=== PATIENT | male | born 1965 | race Caucasian/White ===

== ENCOUNTER 2018-12-27 12:59 | Observation (INO) ==
--- NOTE | 2018-12-27 13:18 | Emergency Department Note ---
Disposition Clinical Impression: Weakness, LESA (acute kidney injury) Altered mental status Qualifiers: Altered mental status type: unspecified Qualified Code(s): R41.82 - Altered mental status, unspecified Disposition: Admitted As Inpatient Condition: Fair Referrals: Erick Crawford, MILA [Primary Care Provider] - Forms: ED Satisfaction Letter Time of Disposition: 17:26 General Adult HPI - General Chief complaint: ED Fall Stated complaint: weakness Time Seen by Provider: 12/27/18 13:04 Source: patient, family, EMS Mode of arrival: EMS Limitations: other (R sided deficits from previous CVA) Nursing Notes Reviewed: Yes Vital Signs Reviewed: Yes - History of Present Illness HPI Narrative: 3-year-old male with a past medical history of previous CVA with residual right- sided deficits that fell yesterday after he tripped on some places he fell onto his right side and onto his right foot he is now complaining of right ankle pain that hurts when he puts weight on it and some swelling, as well as a mild headache. Patient denies any pain with deep breath, pain in his right flank. Patient is alert and oriented 2 he does know where he is and who he is, however he does not know what day it is. Patient does know who the president is. Patient does have a home health aide to help him with activities of daily living since his stroke. He is complaining of some increased weakness, gait instability since before the fall yesterday. He was seated at outside facility yesterday where they did a ankle x-ray which did not show any acute fracture, but did show some osteophytes in the area of the navicular which they encouraged correlation with old trauma by radiology read. - Related Data Home Medications Medication Instructions Recorded Confirmed Acetaminophen [Tylenol] 500 mg PO Q6HR PRN 12/27/18 12/27/18 Alogliptin Benzoate [Alogliptin] 25 mg PO DAILY 12/27/18 12/27/18 Aspirin [Lo-Dose Aspirin EC] 81 mg PO DAILY 12/27/18 12/27/18 Atorvastatin [Lipitor] 40 mg PO HS 12/27/18 12/27/18 Calcitriol [Rocaltrol] 0.25 mcg PO DAILY 12/27/18 12/27/18 Cholecalciferol (Vitamin D3) 1,000 unit PO QAM 12/27/18 12/27/18 [Vitamin D] Labetalol HCl 400 mg PO BID 12/27/18 12/27/18 NIFEdipine XL (24 HR) [Procardia 30 mg PO DAILY 12/27/18 12/27/18 XL] Omeprazole [PriLOSEC] 20 mg PO DAILY 12/27/18 12/27/18 Tamsulosin [Flomax] 0.4 mg PO DAILY 12/27/18 12/27/18 glipiZIDE [Glipizide] 10 mg PO DAILY 12/27/18 12/27/18 Previous Rx's Medication Instructions Recorded Ketorolac [Toradol] 10 mg PO Q6HR #20 tablet 12/27/18 PredniSONE [Deltasone] 40 mg PO DAILY #10 tablet 12/27/18 Allergies Allergy/AdvReac Type Severity Reaction Status Date / Time No Known Allergies Allergy Verified 12/27/18 07:21 Review of Systems: In addition to that documented in the HPI above, the additional ROS was obtain ed: Constitutional: Denies fevers or chills Eyes: Denies vision changes ENMT: Denies sore throat CV: Denies chest pain Resp: Denies SOB GI: Denies vomiting or diarrhea : Denies painful urination MSK: Reports recent trauma - fall yesterday onto right side and right foot Skin: Denies new rashes Neuro: Denies new numbness or tingling or weakness Past Medical History - Past Medical History Attestation: Yes The following information was validated with the patient. Medical history: Reports: renal disease, other Psychiatric history: Reports: no psych history - Social History Smoking Status: Never smoker Smokeless Tobacco Status: No Alcohol use: Reports: none Drug use: Reports: none Physical Exam GENERAL: Alert and oriented to person and place, but not time. Thin. Appears older than stated age. SKIN: Warm and well perfused. HEAD: Atraumatic, normocephalic without edema, discoloration or evidence of trauma. Facial bones without deformities or tenderness. EYES: Pupils miotic. No scleral icterus or conjunctival injection. Extraocular muscles intact without nystagmus or diplopia. No proptosis or enophthalmos. EARS: Normal appearing pinnae. No hemotympanum. NOSE: No discharge, tenderness, laxity. No nasal septal hematoma. MOUTH: No malocclusion or trismus. Tacky mucus membranes without blood. Posterior pharynx without erythema or exudate. NECK: Trachea midline. No discolorations or edema. CV: Regular rate and rhythm, Normal s1 and s2. No murmurs, rubs, or gallops. PV: Radial pulses 2+ bilaterally and symmetric. Dorsalis pedis pulses 2+ bilaterally and symmetric. 2+ capillary refill. No extremity edema in LLE, RUE, LUE. RLE has some mild, non-pitting, edema to level of ankle. CHEST: No abrasions or ecchymosis. Chest symmetric with respirations. No chest wall tenderness. No crepitus. No step offs. Lungs are clear to auscultation bilaterally. No rales, rhonchi, wheezing or stridor. ABDOMEN: No ecchymosis or abrasions. Soft, nondistended, nontender. Bowel tones normoactive. No masses or organomegaly. Voluntary guarding present in all quadrants, but pt denies pain with palpation. BACK: No skin openings, or ecchymosis. Cervical and thoracic spine without bony tenderness, no step offs. Midline lumbar tenderness in area of L3-4, pt states is since fall yesterday. Right-sided red punctate ecchymosis present on back, in area of T8-T12, without overlying abrasion. PELVIC: Pelvis stable, nontender to lateral compression and palpation of symphysis pubis. MSK: No gross deformities or discolorations or lesions. Tolerates full range of motion of extremities without tenderness. NEURO: GCS 15. Sensation grossly intact. Strength 5/5 in bilateral UE, Str 4/5 in RLE, 5/5 in LLE. CN II-XI intact, CN XII unable to deviate tongue to right. Cerebellar testing with finger to nose intact bilaterally. Course Vital Signs Temperature 98.6 F 12/27/18 13:02 Pulse Rate 92 12/27/18 13:02 Respiratory Rate 18 12/27/18 13:02 Blood Pressure 179/100 12/27/18 13:02 O2 Sat by Pulse Oximetry 97 12/27/18 13:02 Temperature 98.6 F 12/27/18 13:02 Pulse Rate 96 12/27/18 16:53 Respiratory Rate 18 12/27/18 16:53 Blood Pressure 173/102 12/27/18 16:53 O2 Sat by Pulse Oximetry 98 12/27/18 16:53 Oxygen Delivery Oxygen Delivery Room Air Medical Decision Making - MDM Narrative Medical decision making narrative: Patient's lab work showed an acute kidney injury with elevated creatinine at 1.92. 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 Additionally patient remained only alert and oriented to self and place but not to time. Patient was deemed unable to make medical decisions regarding his care. Patient stated that he did not want to be admitted to the hospital however attending physician Dr. Davidson Greco spoke with both ethics and legal and it was determined that patient would not be considered competent to make medical decisions for himself. Patient was admitted to the hospitalist, Dr. Mendoza, who agreed to accept the patient to their service. Patient remained stable while in the department. - Medical Records Medical records reviewed: Yes I reviewed the patient's medical records. - Lab Data Lab results reviewed: Yes I reviewed the patient's lab results. Result diagrams: 12/27/18 13:22 12/27/18 13:22 Lab Results 12/27/18 12/27/18 12/27/18 Range/Units 13:22 13:22 13:22 WBC 8.7 (4.3-11.1) K/mcL RBC 4.22 (4.19-5.50) M/mcL Hgb 12.8 L (12.9-16.9) g/dL Hct 38.5 (37.5-50.1) % MCV 91.2 (83.0-100.0) fL MCH 30.3 (28.0-33.3) pg MCHC 33.2 (31.6-35.5) g/dL RDW 12.8 (11.5-14.5) % Plt Count 154 (140-400) K/mcL MPV 10.7 (9.4-12.4) fL Immature Gran % 0.3 (0-4) % Seg Neutrophils % 89.5 % Lymphocytes % 7.8 % Monocytes % 2.0 % Eosinophils % 0.2 % Basophils % 0.2 % Neutrophils # 7.8 (1.6-8.9) K/mcL Lymphocytes # 0.7 (0.6-4.6) K/mcL Monocytes # 0.2 (0.0-1.3) K/mcL Eosinophils # 0.0 (0.0-0.6) K/mcL Basophils # 0.0 (0.0-0.2) K/mcL PT 10.9 (9.4-12.1) Seconds INR 1.0 APTT 30.3 (26.0-36.0) Seconds Sodium 138 (136-145) mEq/L Potassium 4.4 (3.5-5.1) mEq/L Chloride 104 (98-107) mEq/L Carbon Dioxide 26 (23-29) mEq/L BUN 34 H (6-20) mg/dL Creatinine 1.92 H (0.70-1.30) mg/dL Est GFR ( Amer) 44 L (> 60) Est GFR (Non-Af Amer) 37 L (> 60) BUN/Creatinine Ratio 18 (6-26) Glucose 379 H (70-105) mg/dL Calculated Osmolality 309 H (280-300) Lactic Acid (0.5-2.2) mmol/L Uric Acid 6.7 (2.3-7.6) mg/dL Calcium 10.0 (8.6-10.3) mg/dL Phosphorus 2.0 L (2.7-4.5) mg/dL Magnesium 1.9 (1.6-2.6) mg/dL Total Bilirubin 1.8 H (0.3-1.0) mg/dL Direct Bilirubin 0.3 H (0.0-0.2) mg/dL Indirect Bilirubin 1.5 H (0.0-1.2) mg/dL AST 22 (13-39) Units/L ALT 18 (7-52) Units/L Alkaline Phosphatase 113 H (34-104) Units/L Troponin I < 0.03 (< 0.04) ng/mL B-Natriuretic Peptide (Less than 100) pg/mL Serum Total Protein 7.3 (6.4-8.9) g/dL Albumin 4.7 (3.5-5.7) g/dL Globulin 2.6 (2.4-3.5) g/dL Albumin/Globulin Ratio 1.8 (1.1-2.2) Lipase 24 (11-82) Units/L Urine Color (Yellow) Urine Clarity (Clear) Urine pH (5.0-8.0) pH Units Ur Specific Terral (1.010-1.025) Urine Protein (Neg-Trace) mg/dL Urine Glucose (UA) (Normal) mg/dL Urine Ketones (Negative) mg/dL Urine Blood (Negative) Urine Nitrite (Negative) Urine Bilirubin (Negative) Urine Urobilinogen (Normal) mg/dL Ur Leukocyte Esterase (Negative) Ur Culture Indicated? (NO) 12/27/18 12/27/18 12/27/18 Range/Units 13:22 13:22 14:28 WBC (4.3-11.1) K/mcL RBC (4.19-5.50) M/mcL Hgb (12.9-16.9) g/dL Hct (37.5-50.1) % MCV (83.0-100.0) fL MCH (28.0-33.3) pg MCHC (31.6-35.5) g/dL RDW (11.5-14.5) % Plt Count (140-400) K/mcL MPV (9.4-12.4) fL Immature Gran % (0-4) % Seg Neutrophils % % Lymphocytes % % Monocytes % % Eosinophils % % Basophils % % Neutrophils # (1.6-8.9) K/mcL Lymphocytes # (0.6-4.6) K/mcL Monocytes # (0.0-1.3) K/mcL Eosinophils # (0.0-0.6) K/mcL Basophils # (0.0-0.2) K/mcL PT (9.4-12.1) Seconds INR APTT (26.0-36.0) Seconds Sodium (136-145) mEq/L Potassium (3.5-5.1) mEq/L Chloride (98-107) mEq/L Carbon Dioxide (23-29) mEq/L BUN (6-20) mg/dL Creatinine (0.70-1.30) mg/dL Est GFR ( Amer) (> 60) Est GFR (Non-Af Amer) (> 60) BUN/Creatinine Ratio (6-26) Glucose (70-105) mg/dL Calculated Osmolality (280-300) Lactic Acid 1.2 (0.5-2.2) mmol/L Uric Acid (2.3-7.6) mg/dL Calcium (8.6-10.3) mg/dL Phosphorus (2.7-4.5) mg/dL Magnesium (1.6-2.6) mg/dL Total Bilirubin (0.3-1.0) mg/dL Direct Bilirubin (0.0-0.2) mg/dL Indirect Bilirubin (0.0-1.2) mg/dL AST (13-39) Units/L ALT (7-52) Units/L Alkaline Phosphatase (34-104) Units/L Troponin I (< 0.04) ng/mL B-Natriuretic Peptide 16 (Less than 100) pg/mL Serum Total Protein (6.4-8.9) g/dL Albumin (3.5-5.7) g/dL Globulin (2.4-3.5) g/dL Albumin/Globulin Ratio (1.1-2.2) Lipase (11-82) Units/L Urine Color Yellow (Yellow) Urine Clarity Clear (Clear) Urine pH 6.0 (5.0-8.0) pH Units Ur Specific Terral 1.013 (1.010-1.025) Urine Protein Negative (Neg-Trace) mg/dL Urine Glucose (UA) 500 H (Normal) mg/dL Urine Ketones Negative (Negative) mg/dL Urine Blood Negative (Negative) Urine Nitrite Negative (Negative) Urine Bilirubin Negative (Negative) Urine Urobilinogen Normal (Normal) mg/dL Ur Leukocyte Esterase Negative (Negative) Ur Culture Indicated? NO (NO) 12/27/18 Range/Units 17:00 WBC (4.3-11.1) K/mcL RBC (4.19-5.50) M/mcL Hgb (12.9-16.9) g/dL Hct (37.5-50.1) % MCV (83.0-100.0) fL MCH (28.0-33.3) pg MCHC (31.6-35.5) g/dL RDW (11.5-14.5) % Plt Count (140-400) K/mcL MPV (9.4-12.4) fL Immature Gran % (0-4) % Seg Neutrophils % % Lymphocytes % % Monocytes % % Eosinophils % % Basophils % % Neutrophils # (1.6-8.9) K/mcL Lymphocytes # (0.6-4.6) K/mcL Monocytes # (0.0-1.3) K/mcL Eosinophils # (0.0-0.6) K/mcL Basophils # (0.0-0.2) K/mcL PT (9.4-12.1) Seconds INR APTT (26.0-36.0) Seconds Sodium (136-145) mEq/L Potassium (3.5-5.1) mEq/L Chloride (98-107) mEq/L Carbon Dioxide (23-29) mEq/L BUN (6-20) mg/dL Creatinine (0.70-1.30) mg/dL Est GFR ( Amer) (> 60) Est GFR (Non-Af Amer) (> 60) BUN/Creatinine Ratio (6-26) Glucose (70-105) mg/dL Calculated Osmolality (280-300) Lactic Acid 0.8 (0.5-2.2) mmol/L Uric Acid (2.3-7.6) mg/dL Calcium (8.6-10.3) mg/dL Phosphorus (2.7-4.5) mg/dL Magnesium (1.6-2.6) mg/dL Total Bilirubin (0.3-1.0) mg/dL Direct Bilirubin (0.0-0.2) mg/dL Indirect Bilirubin (0.0-1.2) mg/dL AST (13-39) Units/L ALT (7-52) Units/L Alkaline Phosphatase (34-104) Units/L Troponin I (< 0.04) ng/mL B-Natriuretic Peptide (Less than 100) pg/mL Serum Total Protein (6.4-8.9) g/dL Albumin (3.5-5.7) g/dL Globulin (2.4-3.5) g/dL Albumin/Globulin Ratio (1.1-2.2) Lipase (11-82) Units/L Urine Color (Yellow) Urine Clarity (Clear) Urine pH (5.0-8.0) pH Units Ur Specific Terral (1.010-1.025) Urine Protein (Neg-Trace) mg/dL Urine Glucose (UA) (Normal) mg/dL Urine Ketones (Negative) mg/dL Urine Blood (Negative) Urine Nitrite (Negative) Urine Bilirubin (Negative) Urine Urobilinogen (Normal) mg/dL Ur Leukocyte Esterase (Negative) Ur Culture Indicated? (NO) - Radiology Data Radiology results reviewed: Yes I reviewed the patient's radiology results. Chest X-Ray 12/27/18 13:05 IMPRESSION: 1. Stable chest x-ray with no active pulmonary disease. D/ / Emmanuel Cruz MD / Emmanuel Cruz MD Interpreting Provider: Emmanuel Cruz MD Cervical Spine CT 12/27/18 13:14 IMPRESSION: No acute abnormality of the cervical spine. D/ / Yared Donaldson MD / Yared Donaldson MD Interpreting Provider: Yared Donaldson MD Head CT 12/27/18 13:14 IMPRESSION: No acute findings in the head. D/ / Luis Aviles MD / Luis Aviles MD Interpreting Provider: Luis Aviles MD Lumbar Spine CT 12/27/18 13:28 IMPRESSION: 1. No acute abnormality involving the lumbar spine. D/ / Emmanuel Cruz MD / Emmanuel Cruz MD Interpreting Provider: Emmanuel Cruz MD Thoracic Spine CT 12/27/18 13:28 IMPRESSION: No acute abnormality of the thoracic spine, as discussed. No evidence of fracture. D/ / Luis Armando Daigle MD / Luis Armando Daigle MD Interpreting Provider: Luis Armando Daigle MD Abdomen/Pelvis CT 12/27/18 15:12 IMPRESSION: 1. Cholelithiasis with no findings of cholecystitis or biliary obstruction 2. Cluster of nodules in the medial right lower lobe have the appearance an atypical infectious process D/ / Yared Donaldson MD / Yared Donaldson MD Interpreting Provider: Yared Donaldson MD - EKG Data EKG #1 EKG attestation: Yes I reviewed and interpreted this EKG. EKG results narrative: Heart rate 89, rhythm sinus, axis normal. IL 169 and prolonged, QRS 93, QTc 446. ST elevation noted in V2 and V3 however this is also noted on the previous study dated 11/18/2013, no other ST elevation noted however there are d ownsloping ST segments in lead 3. There is evidence of left ventricular hypertrophy. There are flattened T waves in lead V6. Attestation Statement - Attestation Attestation: I, Davidson Greco DO, examined this patient [id number] and my medical decision-making was reviewed with Dr. Izzy Hernandez, Resident Physician. I agree with the documented findings, disposition and treatment plan as described except to the extent set forth below. I personally supervised and was present for the medina/critical portions of the procedures completed by the resident documented below. Please see my progress notes for details.
[2018-12-27 13:39] LABS: Basophils % 0.2 %; Eosinophils % 0.2 %; Hematocrit 38.5 % (37.5-50.1); Hemoglobin 12.8 g/dL (12.9-16.9); Immature Granulocytes % 0.3 % (0-4); Lymphocytes # 0.7 K/mcL (0.6-4.6); Lymphocytes % 7.8 %; Mean Corpuscular HGB Conc 33.2 g/dL (31.6-35.5); Mean Corpuscular Hemoglobin 30.3 pg (28.0-33.3); Mean Corpuscular Volume 91.2 fL (83.0-100.0); Mean Platelet Volume 10.7 fL (9.4-12.4); Monocytes # 0.2 K/mcL (0.0-1.3); Neutrophils # 7.8 K/mcL (1.6-8.9); Platelet Count 154 K/mcL (140-400); Red Blood Count 4.22 M/mcL (4.19-5.50); Red Cell Distribution Width 12.8 % (11.5-14.5); Segmented Neutrophils % 89.5 %
[2018-12-27 13:46] LABS: Prothrombin Time 10.9 Seconds (9.4-12.1)
[2018-12-27 13:48] LABS: Activated Partial Thrombo Time 30.3 Seconds (26.0-36.0)
[2018-12-27 14:05] LABS: Alanine Aminotransferase 18 Units/L (7-52); Albumin 4.7 g/dL (3.5-5.7); Albumin/Globulin Ratio 1.8 (1.1-2.2); Alkaline Phosphatase 113 Units/L (34-104); Aspartate Amino Transferase 22 Units/L (13-39); BUN/Creatinine Ratio 18 (6-26); Bilirubin,Direct 0.3 mg/dL (0.0-0.2); Bilirubin,Indirect 1.5 mg/dL (0.0-1.2); Bilirubin,Total 1.8 mg/dL (0.3-1.0); Blood Urea Nitrogen 34 mg/dL (6-20); Carbon Dioxide 26 mEq/L (23-29); Chloride 104 mEq/L (98-107); Globulin 2.6 g/dL (2.4-3.5); Glucose 379 mg/dL (70-105); Magnesium 1.9 mg/dL (1.6-2.6); Osmolality,Calculated 309 (280-300); Potassium 4.4 mEq/L (3.5-5.1); Sodium 138 mEq/L (136-145); Total Protein 7.3 g/dL (6.4-8.9); Troponin I < 0.03 ng/mL (< 0.04); Uric Acid 6.7 mg/dL (2.3-7.6); eGFR For Non-African Americans 37 (> 60)
--- NOTE | 2018-12-27 14:20 | Emergency Department Note ---
Disposition Clinical Impression: Weakness, LESA (acute kidney injury) Altered mental status Qualifiers: Altered mental status type: unspecified Qualified Code(s): R41.82 - Altered mental status, unspecified Disposition: Admitted As Inpatient Condition: Fair Time of Disposition: 22:57 General Adult HPI - General Chief complaint: ED General Medical Stated complaint: weakness Time Seen by Provider: 12/27/18 13:04 Source: patient, family, EMS Mode of arrival: EMS Limitations: other (R sided deficits from previous CVA) - History of Present Illness Pain Scale: 0 - Related Data Home Medications Medication Instructions Recorded Confirmed Acetaminophen [Tylenol] 500 mg PO Q6HR PRN 12/27/18 12/27/18 Alogliptin Benzoate [Alogliptin] 25 mg PO DAILY 12/27/18 12/27/18 Aspirin [Lo-Dose Aspirin EC] 81 mg PO DAILY 12/27/18 12/27/18 Atorvastatin [Lipitor] 40 mg PO HS 12/27/18 12/27/18 Calcitriol [Rocaltrol] 0.25 mcg PO DAILY 12/27/18 12/27/18 Cholecalciferol (Vitamin D3) 1,000 unit PO QAM 12/27/18 12/27/18 [Vitamin D] Labetalol HCl 400 mg PO BID 12/27/18 12/27/18 NIFEdipine XL (24 HR) [Procardia 30 mg PO DAILY 12/27/18 12/27/18 XL] Omeprazole [PriLOSEC] 20 mg PO DAILY 12/27/18 12/27/18 Tamsulosin [Flomax] 0.4 mg PO DAILY 12/27/18 12/27/18 glipiZIDE [Glipizide] 10 mg PO DAILY 12/27/18 12/27/18 Previous Rx's Medication Instructions Recorded Ketorolac [Toradol] 10 mg PO Q6HR #20 tablet 12/27/18 PredniSONE [Deltasone] 40 mg PO DAILY #10 tablet 12/27/18 Allergies Allergy/AdvReac Type Severity Reaction Status Date / Time No Known Allergies Allergy Verified 12/27/18 07:21 Past Medical History - Past Medical History Medical history: Reports: renal disease, other Psychiatric history: Reports: no psych history - Social History Smoking Status: Never smoker Smokeless Tobacco Status: No Alcohol use: Reports: none Drug use: Reports: none Physical Exam - General Limitations: other (R sided deficits from previous CVA) General appearance: alert, in no apparent distress Course Vital Signs Temperature 98.6 F 12/27/18 13:02 Pulse Rate 92 12/27/18 13:02 Respiratory Rate 18 12/27/18 13:02 Blood Pressure 179/100 12/27/18 13:02 O2 Sat by Pulse Oximetry 97 12/27/18 13:02 Temperature 98.7 F 12/27/18 18:59 Pulse Rate 106 12/27/18 18:59 Respiratory Rate 16 12/27/18 18:59 Blood Pressure 194/113 12/27/18 18:59 O2 Sat by Pulse Oximetry 96 12/27/18 18:59 Oxygen Delivery Oxygen Delivery Room Air Medical Decision Making - Lab Data Result diagrams: 12/27/18 13:22 12/27/18 13:22 Lab Results 12/27/18 12/27/18 12/27/18 Range/Units 13:22 13:22 13:22 WBC 8.7 (4.3-11.1) K/mcL RBC 4.22 (4.19-5.50) M/mcL Hgb 12.8 L (12.9-16.9) g/dL Hct 38.5 (37.5-50.1) % MCV 91.2 (83.0-100.0) fL MCH 30.3 (28.0-33.3) pg MCHC 33.2 (31.6-35.5) g/dL RDW 12.8 (11.5-14.5) % Plt Count 154 (140-400) K/mcL MPV 10.7 (9.4-12.4) fL Immature Gran % 0.3 (0-4) % Seg Neutrophils % 89.5 % Lymphocytes % 7.8 % Monocytes % 2.0 % Eosinophils % 0.2 % Basophils % 0.2 % Neutrophils # 7.8 (1.6-8.9) K/mcL Lymphocytes # 0.7 (0.6-4.6) K/mcL Monocytes # 0.2 (0.0-1.3) K/mcL Eosinophils # 0.0 (0.0-0.6) K/mcL Basophils # 0.0 (0.0-0.2) K/mcL PT 10.9 (9.4-12.1) Seconds INR 1.0 APTT 30.3 (26.0-36.0) Seconds Sodium 138 (136-145) mEq/L Potassium 4.4 (3.5-5.1) mEq/L Chloride 104 (98-107) mEq/L Carbon Dioxide 26 (23-29) mEq/L BUN 34 H (6-20) mg/dL Creatinine 1.92 H (0.70-1.30) mg/dL Est GFR ( Amer) 44 L (> 60) Est GFR (Non-Af Amer) 37 L (> 60) BUN/Creatinine Ratio 18 (6-26) Glucose 379 H (70-105) mg/dL Est Mean Plasma Glucose mg/dl Hemoglobin A1c ( - 5.6) % Calculated Osmolality 309 H (280-300) Lactic Acid (0.5-2.2) mmol/L Uric Acid 6.7 (2.3-7.6) mg/dL Calcium 10.0 (8.6-10.3) mg/dL Phosphorus 2.0 L (2.7-4.5) mg/dL Magnesium 1.9 (1.6-2.6) mg/dL Total Bilirubin 1.8 H (0.3-1.0) mg/dL Direct Bilirubin 0.3 H (0.0-0.2) mg/dL Indirect Bilirubin 1.5 H (0.0-1.2) mg/dL AST 22 (13-39) Units/L ALT 18 (7-52) Units/L Alkaline Phosphatase 113 H (34-104) Units/L Troponin I < 0.03 (< 0.04) ng/mL B-Natriuretic Peptide (Less than 100) pg/mL Serum Total Protein 7.3 (6.4-8.9) g/dL Albumin 4.7 (3.5-5.7) g/dL Globulin 2.6 (2.4-3.5) g/dL Albumin/Globulin Ratio 1.8 (1.1-2.2) Lipase 24 (11-82) Units/L Urine Color (Yellow) Urine Clarity (Clear) Urine pH (5.0-8.0) pH Units Ur Specific [place] (1.010-1.025) Urine Protein (Neg-Trace) mg/dL Urine Glucose (UA) (Normal) mg/dL Urine Ketones (Negative) mg/dL Urine Blood (Negative) Urine Nitrite (Negative) Urine Bilirubin (Negative) Urine Urobilinogen (Normal) mg/dL Ur Leukocyte Esterase (Negative) Ur Culture Indicated? (NO) Hepatitis A IgM Ab (Nonreactive) Hep Bs Antigen (Nonreactive) Hep B Core IgM Ab (Nonreactive) Hepatitis C Ab Screen (Nonreactive) 12/27/18 12/27/18 12/27/18 Range/Units 13:22 13:22 13:22 WBC (4.3-11.1) K/mcL RBC (4.19-5.50) M/mcL Hgb (12.9-16.9) g/dL Hct (37.5-50.1) % MCV (83.0-100.0) fL MCH (28.0-33.3) pg MCHC (31.6-35.5) g/dL RDW (11.5-14.5) % Plt Count (140-400) K/mcL MPV (9.4-12.4) fL Immature Gran % (0-4) % Seg Neutrophils % % Lymphocytes % % Monocytes % % Eosinophils % % Basophils % % Neutrophils # (1.6-8.9) K/mcL Lymphocytes # (0.6-4.6) K/mcL Monocytes # (0.0-1.3) K/mcL Eosinophils # (0.0-0.6) K/mcL Basophils # (0.0-0.2) K/mcL PT (9.4-12.1) Seconds INR APTT (26.0-36.0) Seconds Sodium (136-145) mEq/L Potassium (3.5-5.1) mEq/L Chloride (98-107) mEq/L Carbon Dioxide (23-29) mEq/L BUN (6-20) mg/dL Creatinine (0.70-1.30) mg/dL Est GFR ( Amer) (> 60) Est GFR (Non-Af Amer) (> 60) BUN/Creatinine Ratio (6-26) Glucose (70-105) mg/dL Est Mean Plasma Glucose mg/dl Hemoglobin A1c ( - 5.6) % Calculated Osmolality (280-300) Lactic Acid 1.2 (0.5-2.2) mmol/L Uric Acid (2.3-7.6) mg/dL Calcium (8.6-10.3) mg/dL Phosphorus (2.7-4.5) mg/dL Magnesium (1.6-2.6) mg/dL Total Bilirubin (0.3-1.0) mg/dL Direct Bilirubin (0.0-0.2) mg/dL Indirect Bilirubin (0.0-1.2) mg/dL AST (13-39) Units/L ALT (7-52) Units/L Alkaline Phosphatase (34-104) Units/L Troponin I (< 0.04) ng/mL B-Natriuretic Peptide 16 (Less than 100) pg/mL Serum Total Protein (6.4-8.9) g/dL Albumin (3.5-5.7) g/dL Globulin (2.4-3.5) g/dL Albumin/Globulin Ratio (1.1-2.2) Lipase (11-82) Units/L Urine Color (Yellow) Urine Clarity (Clear) Urine pH (5.0-8.0) pH Units Ur Specific [place] (1.010-1.025) Urine Protein (Neg-Trace) mg/dL Urine Glucose (UA) (Normal) mg/dL Urine Ketones (Negative) mg/dL Urine Blood (Negative) Urine Nitrite (Negative) Urine Bilirubin (Negative) Urine Urobilinogen (Normal) mg/dL Ur Leukocyte Esterase (Negative) Ur Culture Indicated? (NO) Hepatitis A IgM Ab Nonreactive (Nonreactive) Hep Bs Antigen Nonreactive (Nonreactive) Hep B Core IgM Ab Nonreactive (Nonreactive) Hepatitis C Ab Screen Nonreactive (Nonreactive) 12/27/18 12/27/18 12/27/18 Range/Units 14:28 17:00 17:00 WBC (4.3-11.1) K/mcL RBC (4.19-5.50) M/mcL Hgb (12.9-16.9) g/dL Hct (37.5-50.1) % MCV (83.0-100.0) fL MCH (28.0-33.3) pg MCHC (31.6-35.5) g/dL RDW (11.5-14.5) % Plt Count (140-400) K/mcL MPV (9.4-12.4) fL Immature Gran % (0-4) % Seg Neutrophils % % Lymphocytes % % Monocytes % % Eosinophils % % Basophils % % Neutrophils # (1.6-8.9) K/mcL Lymphocytes # (0.6-4.6) K/mcL Monocytes # (0.0-1.3) K/mcL Eosinophils # (0.0-0.6) K/mcL Basophils # (0.0-0.2) K/mcL PT (9.4-12.1) Seconds INR APTT (26.0-36.0) Seconds Sodium (136-145) mEq/L Potassium (3.5-5.1) mEq/L Chloride (98-107) mEq/L Carbon Dioxide (23-29) mEq/L BUN (6-20) mg/dL Creatinine (0.70-1.30) mg/dL Est GFR ( Amer) (> 60) Est GFR (Non-Af Amer) (> 60) BUN/Creatinine Ratio (6-26) Glucose (70-105) mg/dL Est Mean Plasma Glucose 194 mg/dl Hemoglobin A1c 8.4 H ( - 5.6) % Calculated Osmolality (280-300) Lactic Acid 0.8 (0.5-2.2) mmol/L Uric Acid (2.3-7.6) mg/dL Calcium (8.6-10.3) mg/dL Phosphorus (2.7-4.5) mg/dL Magnesium (1.6-2.6) mg/dL Total Bilirubin (0.3-1.0) mg/dL Direct Bilirubin (0.0-0.2) mg/dL Indirect Bilirubin (0.0-1.2) mg/dL AST (13-39) Units/L ALT (7-52) Units/L Alkaline Phosphatase (34-104) Units/L Troponin I (< 0.04) ng/mL B-Natriuretic Peptide (Less than 100) pg/mL Serum Total Protein (6.4-8.9) g/dL Albumin (3.5-5.7) g/dL Globulin (2.4-3.5) g/dL Albumin/Globulin Ratio (1.1-2.2) Lipase (11-82) Units/L Urine Color Yellow (Yellow) Urine Clarity Clear (Clear) Urine pH 6.0 (5.0-8.0) pH Units Ur Specific [place] 1.013 (1.010-1.025) Urine Protein Negative (Neg-Trace) mg/dL Urine Glucose (UA) 500 H (Normal) mg/dL Urine Ketones Negative (Negative) mg/dL Urine Blood Negative (Negative) Urine Nitrite Negative (Negative) Urine Bilirubin Negative (Negative) Urine Urobilinogen Normal (Normal) mg/dL Ur Leukocyte Esterase Negative (Negative) Ur Culture Indicated? NO (NO) Hepatitis A IgM Ab (Nonreactive) Hep Bs Antigen (Nonreactive) Hep B Core IgM Ab (Nonreactive) Hepatitis C Ab Screen (Nonreactive) Attestation Statement - Attestation Attestation: I, Davidson Greco DO, examined this patient [id number] and my medical decision-making was reviewed with Dr. Izzy Hernandez, Resident Physician. I agree with the documented findings, disposition and treatment plan as described except to the extent set forth below. I personally supervised and was present for the medina/critical portions of the procedures completed by the resident documented below. Please see my progress notes for details. 53-year-old male presents emergency room for evaluation of confusion ataxia gait and generalized malaise. Patient was seen in outside facility this morning and discharged home. The home health aide was concerned because he does have a remote history of stroke and he has not been acting like this. The symptom onset was yesterday afternoon. On arrival here the patient is alert and oriented. He is answering questions appropriately. Head is atraumatic. Pupils are equal round reactive. He denies any chest pain or shortness of breath. He has not had any nausea vomiting or diarrhea. Denies any fevers or chills. He has not had any recent illnesses. He did fall yesterday and hit his head and arm as well as his foot. Those were evaluated the outside facility but no other workup was completed. He is moving his bilateral upper and lower extremities without any difficulty against gravity. He does not appear to have any visible signs of ataxia with finger to nose and heel to burgess testing here in the emergency department. The care provider is with him here in the emergency room and was describing some intermittent confusion as well as antalgic gait or walking around. No other acute issues noted. Lungs are clear. Heart is regular. Abdomen is soft. Right upper cavity elbow was reviewed and does have abrasion but otherwise no other acute pathology. Left upper extremity is normal. Abdomen is soft nontender nondistended. Pelvis is stable. Lower extremities are unremarkable. Right lower extremities does have swelling and redness to the foot but otherwise is asymptomatic and showing no other acute pathology at this time. Patient will have CT imaging of the head and cervical spine along with chest x-ray EKG CBC chemistry troponin electrolytes urinalysis completed here in the emergency department. Disposition will be determined once full workup and treatment course I been established. Otherwise patient does not have any acute signs of strokelike presentation underlying infection could be potential. Patient is otherwise clinically stable. He will documentation of the physical exam, medical intervention, medical decision-making and disposition the resident physician's note. No critical care applied the patient's treatment course at this time. 1500 Bilirubin and alkaline phosphatase are elevated. Patient does have some voluntary guarding of the abdomen but denies any pain at this point. Concern is noted for potential intra-abdominal etiology. No other acute signs of infection noted during the treatment course and evaluation at this time. P atient will be evaluated here in the emergency department and admission process will be completed secondary to acute renal insufficiency with generalized malaise and confusion. Patient will be monitored here until disposition is completed 1700 Patient has underlying renal insufficiency. Patient talked to his social services technician who confirms his chronic renal insufficiency. Both the home health aide as well as a social services technician are concerned about his care because he is confused and is been falling more home. Patient is still unable to answer all questions appropriately. He is requesting to leave the emergency department. I have contacted our on-call risk and legal as well as ethics committee and they agree with my determination the patient does not have appropriate medical decision- making capacity and is at risk for his own personal health secondary to his inability to understand the complexity of his presentation here today. At this time the patient will be admitted for management here in the hospital. The patient family has been informed in the mother is trying to convince him to stay for otherwise he will be held here in the emergency department until thorough evaluation has been completed and the patient is determined to have appropriate decision-making capacity to go home. At this time the patient is stable with confusion and generalized weakness with ataxia causing falls. Patient will be held in the hospital until appropriate screening has been completed. Both the home health aide and a social services technician in agreement with the determined medical treatment course at this time. Patient is otherwise in no distress. The hospitalist has been informed. Patient will be admitted for symptomatic control management. Here in the emergency department until the admission process is completed. 1800 Patient is still unable to get up and walk and still confused. He is still requesting to leave. We have had multiple times during the convince him of his need for evaluation and admission. Again, the patient does not appear to have appropriate medical decision-making capacity and does not understand the complexity of his medical condition. He states he does understand that he could go home and but I do not feel that he understands entirely what this means. Patient this point will be medically admitted and observed. Disposition be determined once appropriate evaluations and consultations have been established. Patient is otherwise stable. Patient's social services technician Silverio left her phone number for follow-up. [phone].
[2018-12-27 14:39] LABS: Bilirubin,Urine Negative (Negative); Blood,Urine Negative (Negative); Clarity,Urine Clear (Clear); Color,Urine Yellow (Yellow); Glucose,Urine (UA) 500 mg/dL (Normal); Ketones,Urine Negative (Negative); Leukocyte Esterase,Urine Negative (Negative); Nitrite,Urine Negative (Negative); Protein,Urine Negative (Neg-Trace); Specific Gravity,Urine 1.013 (1.010-1.025); Urobilinogen,Urine Normal (Normal)
[2018-12-27 15:27] LABS: Lipase 24 Units/L (11-82)
[2018-12-27 15:53] LABS: Hepatitis B Surface Antigen Nonreactive (Nonreactive)
[2018-12-27 16:22] LABS: Hepatitis B Core IgM Nonreactive (Nonreactive); Hepatitis C Virus Antibody Nonreactive (Nonreactive)
[2018-12-27 16:24] LABS: Hepatitis A Antibody IgM Nonreactive (Nonreactive)
--- NOTE | 2018-12-27 16:33 | Internal Med History&Physical ---
Date of Encounter: 12/27/18 Time of Encounter: 16:31 Internal Medicine - H&P: HPI Chief complaint: Generalized malaise Confusion and ataxia gait Admitted From: Emergency Dept Plans for Post Hospital Care: Home History of present illness: Mr. Baez is a 53 year old male patient with a history of prior CVA with residual right-sided deficits, developmental delay who was brought to the ER here from [facility] due to concerns for gait instability and confusion. Patient had apparently fallen recently and injured his right ankle. He was complaining of pain there. Patient was evaluated at [facility] and he received an injection which seemed to help his pain. However his health aide was concern enough to bring him to the ER here. Patient presently states that he feels fine and wishes to go home. He denies any dizziness or lightheadedness. No nausea or vomiting. No abdominal pain. No fevers or chills reported overnight. He denies any abdominal pain. Past Med Surg Social Fam HX - Past Medical History Medical history: CVA, diabetes, hypertension, other Additional medical history: Developmental delay Psychiatric history: no psych history - Social History Smoking Status: Never smoker Smokeless Tobacco Status: No Alcohol use: none Drug use: none - Additional Family History Additional family history: Family history reviewed and found to be noncontributory at this time Internal Medicine - H&P: Meds Acetaminophen [Tylenol] 500 mg PO Q6HR PRN 12/27/18 [History] Alogliptin Benzoate [Alogliptin] 25 mg PO DAILY 12/27/18 [History] Aspirin [Lo-Dose Aspirin EC] 81 mg PO DAILY 12/27/18 [History] Atorvastatin [Lipitor] 40 mg PO HS 12/27/18 [History] Calcitriol [Rocaltrol] 0.25 mcg PO DAILY 12/27/18 [History] Cholecalciferol (Vitamin D3) [Vitamin D] 1,000 unit PO QAM 12/27/18 [History] Ketorolac [Toradol] 10 mg PO Q6HR #20 tablet 12/27/18 [Rx] Labetalol HCl 400 mg PO BID 12/27/18 [History] NIFEdipine XL (24 HR) [Procardia XL] 30 mg PO DAILY 12/27/18 [History] Omeprazole [PriLOSEC] 20 mg PO DAILY 12/27/18 [History] PredniSONE [Deltasone] 40 mg PO DAILY #10 tablet 12/27/18 [Rx] Tamsulosin [Flomax] 0.4 mg PO DAILY 12/27/18 [History] glipiZIDE [Glipizide] 10 mg PO DAILY 12/27/18 [History] Allergy/AdvReac Type Severity Reaction Status Date / Time No Known Allergies Allergy Verified 12/27/18 07:21 ROS unobtainable: due to mental status All Systems PM: A 10-system review of systems was performed and is negative for pertinent findings except as documented above in the HPI. Review of systems: Obtained talking to caregiver - Constitutional Constitutional: no chills, no fever(s), no night sweats - EENT Eyes: no change in vision, no discharge, no pain, no photophobia Ears: no ear discharge, no ear pain, no tinnitus Nose, mouth and throat: no dysphagia, no nasal discharge, no neck pain, no sore throat - Cardiovascular Cardiovascular ROS IM: no chest pain, no diaphoresis, no dyspnea, no lightheadedness, no palpitations, no syncope - Respiratory Respiratory: no cough, no dyspnea, no wheezing, no excessive phlegm production - Gastrointestinal Gastrointestinal: no abdominal pain, no diarrhea, no hematemesis, no hematochezia, no melena, no nausea, no vomiting - Musculoskeletal Musculoskeletal ROS IM: other (left ankle pain), no numbness, no tingling - Integumentary Integumentary IM: no rash, no unusual bruising - Neurological Neurological ROS: abnormal gait, confusion, focal weakness (chronic), no conv ulsions, no numbness, no tingling, no tremor(s) - Hematologic/Lymphatic Hematologic/Lymphatic: no easy bruising - Constitutional Vitals: Temp Pulse Resp BP Pulse Ox 98.6 F 86 18 179/101 97 12/27/18 13:02 12/27/18 16:09 12/27/18 16:09 12/27/18 16:09 12/27/18 16:09 Exam: General: Patient is alert, no acute distress, oriented x 2 Head: atraumatic, normocephalic, ENT: Mucous membranes dry Eye: normal appearance, PERRL, no scleral icterus, no conjunctival injection Neck: normal inspection, trachea midline, full ROM, no carotid bruits Chest: normal inspection, symmetric chest rise Respiratory: Good respiratory effort. Normal breath sounds. No wheezing or crackles. Cardiovascular: Regular rate and rhythm. tachycardia s1 and s2 normal No clicks, rubs, gallops, or murmurs. No pedal edema Abdomen: Abdomen is soft, nontender. Bowel sounds are present Musculoskeletal: Spontaneously moving all extremities Skin: warm, dry, intact. Neuro: Alert oriented x 2 normal cranial nerves, residual right sided weakness Psych: Patient's affect is normal Internal Med - H&P Results - Labs CBC & Chem 7: 12/27/18 13:22 12/27/18 13:22 Labs: Short CBC 12/27/18 Range/Units 13:22 WBC 8.7 (4.3-11.1) K/mcL Hgb 12.8 L (12.9-16.9) g/dL Hct 38.5 (37.5-50.1) % Plt Count 154 (140-400) K/mcL Neutrophils # 7.8 (1.6-8.9) K/mcL BMP 12/27/18 13:22 Sodium 138 Potassium 4.4 Chloride 104 Carbon Dioxide 26 BUN 34 H Creatinine 1.92 H Glucose 379 H Calcium 10.0 Cardiac Enzymes 12/27/18 Range/Units 13:22 Troponin I < 0.03 (< 0.04) ng/mL Liver Function 12/27/18 Range/Units 13:22 Total Bilirubin 1.8 H (0.3-1.0) mg/dL Direct Bilirubin 0.3 H (0.0-0.2) mg/dL AST 22 (13-39) Units/L ALT 18 (7-52) Units/L Alkaline Phosphatase 113 H (34-104) Units/L Albumin 4.7 (3.5-5.7) g/dL Urine 12/27/18 Range/Units 14:28 Urine Color Yellow (Yellow) Urine Clarity Clear (Clear) Urine pH 6.0 (5.0-8.0) pH Units Ur Specific [place] 1.013 (1.010-1.025) Urine Protein Negative (Neg-Trace) mg/dL Urine Glucose (UA) 500 H (Normal) mg/dL - Impressions ITS Impressions Chest X-Ray 12/27/18 13:05 IMPRESSION: 1. Stable chest x-ray with no active pulmonary disease. D/ / Emmanuel Cruz MD / Emmanuel Cruz MD Interpreting Provider: Emmanuel Cruz MD Cervical Spine CT 12/27/18 13:14 IMPRESSION: No acute abnormality of the cervical spine. D/ / Yared Donaldson MD / Yared Donaldson MD Interpreting Provider: Yared Donaldson MD Head CT 12/27/18 13:14 IMPRESSION: No acute findings in the head. D/ / Luis Aviles MD / Luis Aviles MD Interpreting Provider: Luis Aviles MD Lumbar Spine CT 12/27/18 13:28 IMPRESSION: 1. No acute abnormality involving the lumbar spine. D/ / Emmanuel Cruz MD / Emmanuel Cruz MD Interpreting Provider: Emmanuel Cruz MD Thoracic Spine CT 12/27/18 13:28 IMPRESSION: No acute abnormality of the thoracic spine, as discussed. No evidence of fracture. D/ / Luis Armando Daigle MD / Luis Armando Daigle MD Interpreting Provider: Luis Armando Daigle MD Abdomen/Pelvis CT 12/27/18 15:12 IMPRESSION: 1. Cholelithiasis with no findings of cholecystitis or biliary obstruction 2. Cluster of nodules in the medial right lower lobe have the appearance an atypical infectious process D/ / Yared Donaldson MD / Yared Donaldson MD Interpreting Provider: Yared Donaldson MD - Assessment and Plan (1) Acute metabolic encephalopathy Current Visit: Yes Status: Suspected Assessment and plan: Patient confused per caregiver. Oriented x2. Likely due to dehydration and LESA. Will treat underlying metabolic conditions and reevaluate. (2) Acute kidney injury Current Visit: Yes Status: Acute Assessment and plan: Patient has acute kidney injury although we do not know his baseline. Urinalysis does not show any proteinuria. Creatinine is 1.92. We will gently hydrate and reevaluate in the morning. Will obtain renal ultrasound. (3) Essential hypertension Current Visit: Yes Status: Chronic Assessment and plan: lood pressure elevated (4) Diabetes mellitus Current Visit: Yes Status: Chronic Assessment and plan: Uncontrolled. Blood sugar elevated. Will place him on sliding scale insulin and long-acting insulin. Monitor blood sugars closely. Check A1c. Qualifiers: Diabetes mellitus type: type 2 Diabetes mellitus snf insulin use: without regional intermodal truck driver use Diabetes mellitus complication status: with hyperglycemia Qualified Code(s): E11.65 - Type 2 diabetes mellitus with hyperglycemia (5) Cholelithiasis Current Visit: Yes Status: Acute Assessment and plan: CT of the abdomen shows cholelithiasis. Patient does have mild elevation of alkaline phosphatase and total bilirubin although indirect bili bilirubin is more prominently elevated. Will discuss with surgery about next steps. Qualifiers: Cholelithiasis location: gallbladder Cholecystitis presence: without cholecystitis Biliary obstruction: without biliary obstruction Qualified Code(s): K80.20 - Calculus of gallbladder without cholecystitis without obstruction - Time Spent With Patient Total time spent is greater than 50% in coordination of care (as documented) at patient's floor/unit and/or counseling patient:
[2018-12-27] MEDS ORDERED: Naloxone 0.4 MG/ML INJ IVP PRN (16:39)
[2018-12-27] MEDS ORDERED: Acetaminophen 325 MG TABLET PO PRN (16:39)
[2018-12-27] MEDS ORDERED: Dextrose Gel 15 GM/37.5 ML TUBE PO PRN ×2 (16:41)
[2018-12-27] MEDS ORDERED: D5% in Water 1,000 ML IVC PRN (16:41)
[2018-12-27] MEDS ORDERED: *HR* Dextrose 50 % in Water (Syg) 50 ML SYRINGE IVP PRN (16:41)
[2018-12-27 17:32] LABS: Estimated Average Glucose 194 mg/dl; Hemoglobin A1C 8.4 %
--- NOTE | 2018-12-27 19:19 | AcuteCare Surgery Consult Note ---
Date of Encounter: 12/27/18 Time of Encounter: 19:15 Assessment and Plan (1) Asymptomatic cholelithiasis Current Visit: Yes Status: Acute Cholelithiasis is aymptomatic. No obstruction or bile duct stones or dilation. Do not recommend surgery for asymptomatic nature of disease. Pt to f/u outpatient prn. Please, reconsult if pt develops any abdominal pain or nausea/vomiting. (2) Acute kidney injury Current Visit: Yes Status: Acute resolving with IV hydration (3) Diabetes mellitus Current Visit: Yes Status: Chronic stable, primary service managing Qualifiers: Diabetes mellitus type: other specified (including ROGER) Diabetes mellitus detention insulin use: without local intermodal truck driver use Diabetes mellitus complication status: with hyperglycemia Qualified Code(s): E13.65 - Other specified diabetes mellitus with hyperglycemia (4) Essential hypertension Current Visit: Yes Status: Chronic stable, primary service managing History of Present Illness Consult date: 12/27/18 Reason for consult: gallstones Requesting physician: Justen Jensen History of present illness: Pt is admitted to [facility] from [place] d/t confusion and gait instability. Work-up found slight elevation of alk phos and T bili. ABD/Pelvis CT reveals choleli thiasis. Pt denies any abdominal pain. He denies nausea or vomiting. He denies fevers. Past Med Surg Social Fam HX - Past Medical History Medical history: CVA, diabetes, hypertension, other Additional medical history: Developmental delay Psychiatric history: no psych history - Social History Smoking Status: Never smoker Smokeless Tobacco Status: No Alcohol use: none Drug use: none Medications and Allergies Acetaminophen [Tylenol] 500 mg PO Q6HR PRN 12/27/18 [History] Alogliptin Benzoate [Alogliptin] 25 mg PO DAILY 12/27/18 [History] Aspirin [Lo-Dose Aspirin EC] 81 mg PO DAILY 12/27/18 [History] Atorvastatin [Lipitor] 40 mg PO HS 12/27/18 [History] Calcitriol [Rocaltrol] 0.25 mcg PO DAILY 12/27/18 [History] Cholecalciferol (Vitamin D3) [Vitamin D] 1,000 unit PO QAM 12/27/18 [History] Ketorolac [Toradol] 10 mg PO Q6HR #20 tablet 12/27/18 [Rx] Labetalol HCl 400 mg PO BID 12/27/18 [History] NIFEdipine XL (24 HR) [Procardia XL] 30 mg PO DAILY 12/27/18 [History] Omeprazole [PriLOSEC] 20 mg PO DAILY 12/27/18 [History] PredniSONE [Deltasone] 40 mg PO DAILY #10 tablet 12/27/18 [Rx] Tamsulosin [Flomax] 0.4 mg PO DAILY 12/27/18 [History] glipiZIDE [Glipizide] 10 mg PO DAILY 12/27/18 [History] Allergy/AdvReac Type Severity Reaction Status Date / Time No Known Allergies Allergy Verified 12/27/18 07:21 Review of Systems All systems PM: The remainder of the systems were reviewed and are negative - Constitutional as per HPI, fatigue, weakness (right side), no anorexia, no chills, no fever(s), no night sweats - EENT Nose, mouth and throat: dry mouth, no dizziness, no nasal congestion, no nasal discharge, no sinus pain, no sinus pressure, no sore throat - Cardiovascular no chest pain, no diaphoresis, no dyspnea, no edema - Respiratory no cough, no dyspnea, no wheezing - Gastrointestinal no abdominal pain, no bloating, no constipation, no diarrhea, no nausea, no vomiting - Genitourinary no difficulty urinating, no dysuria, no urinary frequency - Musculoskeletal abnormal gait, no back pain, no joint swelling, no limited range of motion, no neck pain - Integumentary no dry skin, no pruritus, no rash, no wounds, no jaundice - Psychiatric confusion (+MRDD) - Hematologic/Lymphatic no easy bleeding, no easy bruising General Surgery Exam Initial Vital Signs Temp Pulse Resp BP Pulse Ox 98.6 F 92 18 179/100 97 12/27/18 13:02 12/27/18 13:02 12/27/18 13:02 12/27/18 13:02 12/27/18 13:02 - General physical appearance well nourished, no distress. negative: jaundice - Eyes PERRL, normal ocular movement. negative: icteric - ENT no congestion, dry mucosa. negative: nasal discharge - Respiratory normal respiratory effort, clear to auscultation - Cardiovascular Cardiovascular exam: Present: RRR. Absent: murmurs - Abdomen Abdomen general surgery: Present: bowel sounds present, soft, non tender. Ab sent: guarding, rebound - Genitourinary Present: normal penis with no external lesions - Integumentary Integumentary general surgery: Present: warm and dry, other (no jaundice) - Neurologic Present: CN 2-12 grossly intact, other (right sided deficit) - Musculoskeletal Present: normal posture - Psychiatric Psychiatric general surgery: Present: A&Ox3, appropriate Exam Initial Vital Signs Temp Pulse Resp BP Pulse Ox 98.6 F 92 18 179/100 97 12/27/18 13:02 12/27/18 13:02 12/27/18 13:02 12/27/18 13:02 12/27/18 13:02 Results - Labs 12/27/18 13:22 12/27/18 13:22 Abnormal lab results Hgb 12.8 g/dL (12.9-16.9) L 12/27/18 13:22 BUN 34 mg/dL (6-20) H 12/27/18 13:22 1.92 mg/dL (0.70-1.30) H 12/27/18 13:22 Est GFR ( Amer) 44 (> 60) L 12/27/18 13:22 Est GFR (Non-Af Amer) 37 (> 60) L 12/27/18 13:22 Glucose 379 mg/dL (70-105) H 12/27/18 13:22 8.4 % (-5.6) H 12/27/18 17:00 309 (280-300) H 12/27/18 13:22 Phosphorus 2.0 mg/dL (2.7-4.5) L 12/27/18 13:22 1.8 mg/dL (0.3-1.0) H 12/27/18 13:22 0.3 mg/dL (0.0-0.2) H 12/27/18 13:22 1.5 mg/dL (0.0-1.2) H 12/27/18 13:22 113 Units/L (34-104) H 12/27/18 13:22 500 mg/dL (Normal) H 12/27/18 14:28 Diabetes panel 12/27/18 12/27/18 Range/Units 13:22 17:00 Sodium 138 (136-145) mEq/L Potassium 4.4 (3.5-5.1) mEq/L Chloride 104 (98-107) mEq/L Carbon Dioxide 26 (23-29) mEq/L BUN 34 H (6-20) mg/dL Creatinine 1.92 H (0.70-1.30) mg/dL Glucose 379 H (70-105) mg/dL Hemoglobin A1c 8.4 H ( - 5.6) % Calcium 10.0 (8.6-10.3) mg/dL AST 22 (13-39) Units/L ALT 18 (7-52) Units/L Alkaline Phosphatase 113 H (34-104) Units/L Albumin 4.7 (3.5-5.7) g/dL Calcium panel 12/27/18 Range/Units 13:22 Calcium 10.0 (8.6-10.3) mg/dL Phosphorus 2.0 L (2.7-4.5) mg/dL Albumin 4.7 (3.5-5.7) g/dL Pituitary panel 12/27/18 Range/Units 13:22 Sodium 138 (136-145) mEq/L Potassium 4.4 (3.5-5.1) mEq/L Chloride 104 (98-107) mEq/L Carbon Dioxide 26 (23-29) mEq/L BUN 34 H (6-20) mg/dL Creatinine 1.92 H (0.70-1.30) mg/dL Glucose 379 H (70-105) mg/dL Calcium 10.0 (8.6-10.3) mg/dL Adrenal panel 12/27/18 Range/Units 13:22 Sodium 138 (136-145) mEq/L Potassium 4.4 (3.5-5.1) mEq/L Chloride 104 (98-107) mEq/L Carbon Dioxide 26 (23-29) mEq/L BUN 34 H (6-20) mg/dL Creatinine 1.92 H (0.70-1.30) mg/dL Glucose 379 H (70-105) mg/dL Calcium 10.0 (8.6-10.3) mg/dL Total Bilirubin 1.8 H (0.3-1.0) mg/dL AST 22 (13-39) Units/L ALT 18 (7-52) Units/L Alkaline Phosphatase 113 H (34-104) Units/L Albumin 4.7 (3.5-5.7) g/dL All other labs normal. - Imaging CT scan - abdomen: image reviewed (+cholelithiasis without GB wall thickening or pericholecystic fluid) CT scan - pelvis: image reviewed Consult Discharge Plan - Plan Referrals: Erick Crawford, AUTOMATION ENGINEER [Primary Care Provider] -
[2018-12-27] MEDS: *HR* Heparin 5,000 UNIT/ML VIAL SQ SCH (19:44)
[2018-12-27] MEDS: Ringers Solution, Lactated 1,000 ML IVC SCH (19:46)
[2018-12-27] MEDS: Insulin LISPRO 300 UNITS/3 ML VIAL SQ SCH (22:25)
[2018-12-27] MEDS: Insulin DETEMIR 100 UNIT/ML X5UNITS SQ SCH (22:53)
[2018-12-28] MEDS: Ringers Solution, Lactated 1,000 ML IVC SCH ×2 (04:35→12:13)
[2018-12-28] MEDS: *HR* Heparin 5,000 UNIT/ML VIAL SQ SCH ×2 (05:50→17:07)
[2018-12-28 06:08] LABS: Basophils % 0.1 %; Hematocrit 35.5 % (37.5-50.1); Hemoglobin 11.7 g/dL (12.9-16.9); Immature Granulocytes % 0.4 % (0-4); Lymphocytes # 1.6 K/mcL (0.6-4.6); Lymphocytes % 20.5 %; Mean Corpuscular Hemoglobin 30.2 pg (28.0-33.3); Mean Corpuscular Volume 91.7 fL (83.0-100.0); Mean Platelet Volume 10.6 fL (9.4-12.4); Monocytes # 0.7 K/mcL (0.0-1.3); Monocytes % 9.7 %; Neutrophils # 5.2 K/mcL (1.6-8.9); Platelet Count 142 K/mcL (140-400); Red Blood Count 3.87 M/mcL (4.19-5.50); Red Cell Distribution Width 13.2 % (11.5-14.5); Segmented Neutrophils % 69.3 %
[2018-12-28 06:30] LABS: Albumin 4.4 g/dL (3.5-5.7); Albumin/Globulin Ratio 2.1 (1.1-2.2); Bilirubin,Total 1.5 mg/dL (0.3-1.0); Calcium 9.8 mg/dL (8.6-10.3); Globulin 2.1 g/dL (2.4-3.5); Potassium 3.9 mEq/L (3.5-5.1); Total Protein 6.5 g/dL (6.4-8.9)
[2018-12-28] MEDS: Insulin LISPRO 300 UNITS/3 ML VIAL SQ SCH ×3 (07:57→17:07)
[2018-12-28] MEDS: NIFEdipine XL (24 HR) 30 MG TAB.ER.24 PO SCH (09:46)
[2018-12-28] MEDS: Aspirin Enteric Coated 81 MG Tablet PO SCH (09:46)
--- NOTE | 2018-12-28 12:30 | Electrocardiograph Report ---
[facility] Test Date: 2018-12-27 Pat Name: Luis Armando Baez Department: [id number] Room: 3A53 Gender: M [employer] Internship: : 1965 Requested By: Davidson Greco Order Number: [id number] Reading MD: Forrest Ewing Measurements Intervals [place] Rate: 89 P: 30 CO: 169 QRS: 7 QRSD: 93 T: 11 QT: 366 QTc: 446 Interpretive Statements Sinus rhythm Left ventricular hypertrophy ST elev, probable normal early repol pattern Electronically Signed On 12-28-2018 12:29:15 EDT by Forrest Ewing
--- NOTE | 2018-12-28 15:43 | Internal Med Progress Note ---
Hospitalist Progress Note - Encounter Date of Encounter: 12/28/18 Time of Encounter: 11:00 - Subjective Interval History: Patient is a 53-year-old male with past medical history significant for developmental delay and CVA with residual right-sided deficits who presented due to concerns of gait debility and confusion. This morning, patients altered mental status has resolved this morning and he is alert and oriented 3. Physical therapy has evaluated patient for gait abnormality and finds that patient is functioning at baseline mobility. Will monitor patient overnight for continued resolution of altered mental status. - Exam Vitals: Temp Pulse Resp BP Pulse Ox 98.2 F 71 15 113/59 93 12/28/18 13:56 12/28/18 13:56 12/28/18 13:56 12/28/18 13:56 12/28/18 13:56 Exam: Gen.: Nonacute distress, alert and oriented 3 ENT: Mucosal membranes moist Respiratory: Lungs are clear to auscultation bilaterally without any wheezing rhonchi or rales Cardiovascular: Normal S1 and S2 regular rate rhythm no murmurs rubs or gallops Abdomen: Soft, nontender and nondistended with positive bowel sounds Extremities: No lower extremity edema Skin: Normal color - Assessment and Plan (1) Acute metabolic encephalopathy Current Visit: Yes Status: Suspected Assessment and Plan: Patient this morning is or blurred and oriented 3 Will monitor overnight (2) Acute kidney injury Current Visit: Yes Status: Acute Assessment and Plan: Patient with acute on chronic kidney disease stage III According to caregiver patient's baseline creatinine approximately 1.9 and this morning 1.83 down from 1.92 on admission Complete IV fluids today and monitor (3) Essential hypertension Current Visit: Yes Status: Chronic Assessment and Plan: Continue home dose of labetalol and Procardia (4) Diabetes mellitus Current Visit: Yes Status: Chronic Assessment and Plan: Patient with a hemoglobin A1c of 8.4 Continue coverage with sliding scale insulin (5) Cholelithiasis Current Visit: Yes Status: Acute Assessment and Plan: CT of the abdomen shows cholelithiasis. Patient also found to have mild elevation of alkaline phosphatase and total bilirubin although indirect bili bilirubin is more prominently elevated. General surgery consulted with recommendations for no surgical intervention at this time due to the asymptomatic nature of disease. Will continue to monitor DVT Prophylaxis: Heparin subcutaneous - Time Spent with Patient Total time spent is greater than 50% in coordination of care (as documented) at patient's floor/unit and/or counseling patient: Internal Medicine: Result - Labs CBC & Chem 7: 12/28/18 05:45 12/28/18 05:45 Labs: Short CBC 12/28/18 Range/Units 05:45 WBC 7.6 (4.3-11.1) K/mcL Hgb 11.7 L (12.9-16.9) g/dL Hct 35.5 L (37.5-50.1) % Plt Count 142 (140-400) K/mcL Neutrophils # 5.2 (1.6-8.9) K/mcL BMP 12/28/18 05:45 Sodium 144 Potassium 3.9 Chloride 108 H Carbon Dioxide 26 BUN 37 H Creatinine 1.83 H Glucose 145 H Calcium 9.8 Liver Function 12/28/18 Range/Units 05:45 Total Bilirubin 1.5 H (0.3-1.0) mg/dL AST 17 (13-39) Units/L ALT 15 (7-52) Units/L Alkaline Phosphatase 90 (34-104) Units/L Albumin 4.4 (3.5-5.7) g/dL - ABG Interpretation ABG results: PT/INR, D-dimer PT 10.9 Seconds (9.4-12.1) 12/27/18 13:22 - Impressions Impressions Abdomen/Pelvis CT 12/27/18 15:12 IMPRESSION: 1. Cholelithiasis with no findings of cholecystitis or biliary obstruction 2. Cluster of nodules in the medial right lower lobe have the appearance an atypical infectious process D/ / Yared Donaldson MD / Yared Donaldson MD Interpreting Provider: Yared Donaldson MD Consult Discharge Plan - Plan Referrals: Erick Crawford, WORKCELL OPERATOR [Primary Care Provider] - (4) Diabetes mellitus Qualifiers: Diabetes mellitus type: other specified (including ROGER) Diabetes mellitus intermediate manager insulin use: without group home use Diabetes mellitus complication status: with hyperglycemia Qualified Code(s): E13.65 - Other specified diabetes mellitus with hyperglycemia (5) Cholelithiasis Qualifiers: Cholelithiasis location: gallbladder Cholecystitis presence: without cholec ystitis Biliary obstruction: without biliary obstruction Qualified Code(s): K80.20 - Calculus of gallbladder without cholecystitis without obstruction
[2018-12-28] MEDS: Insulin DETEMIR 100 UNIT/ML X5UNITS SQ SCH (21:43)
[2018-12-29] MEDS: Insulin LISPRO 300 UNITS/3 ML VIAL SQ SCH ×3 (03:08→12:18)
[2018-12-29] MEDS: *HR* Heparin 5,000 UNIT/ML VIAL SQ SCH (05:14)
[2018-12-29] MEDS: Aspirin Enteric Coated 81 MG Tablet PO SCH (08:06)
[2018-12-29] MEDS: NIFEdipine XL (24 HR) 30 MG TAB.ER.24 PO SCH ×2 (08:22→14:55)
[2018-12-29 11:17] LABS: Basophils % 0.8 %; Eosinophils # 0.2 K/mcL (0.0-0.6); Hematocrit 35.1 % (37.5-50.1); Hemoglobin 11.2 g/dL (12.9-16.9); Immature Granulocytes % 0.2 % (0-4); Lymphocytes # 1.3 K/mcL (0.6-4.6); Lymphocytes % 26.1 %; Mean Corpuscular HGB Conc 31.9 g/dL (31.6-35.5); Mean Corpuscular Hemoglobin 30.2 pg (28.0-33.3); Mean Corpuscular Volume 94.6 fL (83.0-100.0); Mean Platelet Volume 11.2 fL (9.4-12.4); Monocytes # 0.5 K/mcL (0.0-1.3); Monocytes % 10.8 %; Platelet Count 138 K/mcL (140-400); Red Blood Count 3.71 M/mcL (4.19-5.50); Red Cell Distribution Width 13.1 % (11.5-14.5); Segmented Neutrophils % 59.1 %
[2018-12-29 11:32] LABS: Calcium 9.3 mg/dL (8.6-10.3); Potassium 4.2 mEq/L (3.5-5.1)
[2018-12-29 14:39] VITALS: BP 170/95
--- NOTE | 2018-12-29 15:02 | Discharge Summary ---
Orders not resulted at time of discharge: Pending orders 12/27/18 13:20 Culture,Blood [BC] Stat Date of Encounter: 12/29/18 Time of Encounter: 11:00 - Discharge Diagnosis (1) Acute metabolic encephalopathy Priority: Primary Status: Suspected (2) Acute kidney injury Priority: Primary Status: Acute (3) Essential hypertension Priority: Secondary Status: Chronic (4) Diabetes mellitus Priority: Secondary Status: Chronic Qualifiers: Diabetes mellitus type: other specified (including ROGER) Diabetes mellitus infertility medical assistant insulin use: without jail use Diabetes mellitus complication status: with hyperglycemia Qualified Code(s): E13.65 - Other specified diabetes mellitus with hyperglycemia (5) Cholelithiasis Priority: Secondary Status: Acute Qualifiers: Cholelithiasis location: gallbladder Cholecystitis presence: without cholecystitis Biliary obstruction: without biliary obstruction Qualified Code(s): K80.20 - Calculus of gallbladder without cholecystitis without obstruction Hospital course: Patient is a 53-year-old male past medical history significant for CVA with residual right-sided deficits, developmental delay who was brought to the ER here from [facility] due to concerns for gait instability and confusion. Patient had apparently fallen recently and injured his right ankle Patient was evaluated at [facility] and he received an injection which seemed to help his pain. However his health aide was concern enough to bring him to the ER here. During patients hospital stay he was alert and oriented 3 with no further issues with confusion and physical therapy was consulted with recommendations to discharge home with outpatient physical therapy. Patient was treated for acute kidney injury with IV fluids which is improving. Patient follow-up with primary care provider. - Time Spent with Patient Total time spent providing and/or coordinating discharge services: Time spent: Less than 30 minutes - Discharge Medications Prescriptions: Continued Ammonium Lactate 1 - 2 gm TP QID PRN PRN Reason: Callus Or Healy Ergocalciferol (VITAMIN D2) [Vitamin D2] 50,000 unit PO QWEEK GlipiZIDE XL (24 HR) [Glucotrol XL] 10 mg PO DAILY Calcitriol [Rocaltrol] 0.25 mcg PO SUTUTH NIFEdipine XL (24 HR) [Procardia XL] 30 mg PO DAILY Cholecalciferol (Vitamin D3) [Vitamin D3] 1,000 unit PO QAM Atorvastatin [Lipitor] 40 mg PO HS Tamsulosin [Flomax] 0.4 mg PO DAILY Omeprazole [PriLOSEC] 20 mg PO DAILY Acetaminophen [Tylenol] 500 mg PO Q6HR PRN PRN Reason: Pain Labetalol HCl 400 mg PO BID Aspirin [Lo-Dose Aspirin EC] 81 mg PO DAILY Alogliptin Benzoate [Alogliptin] 25 mg PO DAILY PredniSONE [Deltasone] 40 mg PO DAILY #10 tablet Ketorolac [Toradol] 10 mg PO Q6HR #20 tablet Home Medications: Acetaminophen [Tylenol] 500 mg PO Q6HR PRN 12/27/18 [History] Alogliptin Benzoate [Alogliptin] 25 mg PO DAILY 12/27/18 [History] Aspirin [Lo-Dose Aspirin EC] 81 mg PO DAILY 12/27/18 [History] Atorvastatin [Lipitor] 40 mg PO HS 12/27/18 [History] Calcitriol [Rocaltrol] 0.25 mcg PO SUTUTH 12/27/18 [History] Cholecalciferol (Vitamin D3) [Vitamin D3] 1,000 unit PO QAM 12/27/18 [History] Ketorolac [Toradol] 10 mg PO Q6HR #20 tablet 12/27/18 [Rx] Labetalol HCl 400 mg PO BID 12/27/18 [History] NIFEdipine XL (24 HR) [Procardia XL] 30 mg PO DAILY 12/27/18 [History] Omeprazole [PriLOSEC] 20 mg PO DAILY 12/27/18 [History] PredniSONE [Deltasone] 40 mg PO DAILY #10 tablet 12/27/18 [Rx] Tamsulosin [Flomax] 0.4 mg PO DAILY 12/27/18 [History] Ammonium Lactate 1 - 2 gm TP QID PRN 12/28/18 [History] Ergocalciferol (VITAMIN D2) [Vitamin D2] 50,000 unit PO QWEEK 12/28/18 [History] GlipiZIDE XL (24 HR) [Glucotrol XL] 10 mg PO DAILY 12/28/18 [History] Allergies/Adverse Reactions: 3 Allergy/AdvReac Type Severity Reaction Status Date / Time No Known Allergies Allergy Verified 12/28/18 16:42 Date of admission: 12/27/18 17:41 Primary care physician: Erick Crawford CNP Consults: 12/27/18 16:39 Consult to Surgery [CONS] Stat Consulting Provider: Acute Care Surgery Reason for Consult: Large gallstone with elevated alk phos Time Notified: 16:39 Call Completed: Yes 12/28/18 11:47 Consult to Physical Therapy [CONS] Routine Comment: Evaluate, develop and implement POC Reason for Consult: weakness, mult. falls Does patient have active BEDREST order?: No Is patient medically & hemodynamically stable?: Yes - Constitutional Vitals: Temp Pulse Resp BP Pulse Ox 98.1 F 71 15 170/95 96 12/29/18 14:33 12/29/18 14:33 12/29/18 14:33 12/29/18 14:33 12/29/18 14:33 Exam: Gen.: Nonacute distress, alert and oriented 3 Skin: Normal color - Patient Status Disposition: Home Health Service Condition: Fair - Discharge Instructions Follow Up With: Erick Crawford CNP [Primary Care Provider] - 01/03/19 12:45 pm Additional Instructions: Follow-up appointments: If there is not an appointment listed below, please call your physician and schedule a follow-up appointment. If you have congestive heart failure and your symptoms return, make an appointment with your physician. Medication List: Carry an up to date list of medications you are taking at all time. We have given you an updated medication list including any new medications that you have been prescribed. Please provide that list to your primary provider Symptoms: If your condition changes or you experience any of the following s ymptoms, notify your physician immediately: Unusual or worsening pain, fever, persistent nausea and vomiting, bleeding, increase in swelling (especially in your legs), sudden weight gain, extreme dizziness, chest pain, increased drainage or redness from a wound or incision. Go to the emergency department if you experience a problem with breathing. Weights: If you have a history of swelling or shortness of breath, weigh yourself daily and notify your physician if you have a weight gain of two or more pounds in one day or 5 or more pounds in a week. If you experience any of the warning signs for stroke: Sudden numbness or weakness of the face, arm or leg; especially on one side of the body, sudden confusion, trouble speaking or understanding, sudden trouble seeing in one or both eyes, sudden trouble walking, dizziness, loss of balance or coordination, sudden sever headache with no cause; Call 911 or go to the emergency room. Stroke is a medical emergency. Some risk factors for stroke: Age, cigarette smoking, diabetes, excessive alcohol consumption, family history, high blood pressure, overweight, physical inactivity, prior stroke, heart attack, diagnosis of carotid artery stenosis or other artery disease. If you smoke, STOP: Smoking or tobacco use significantly increases your risk of heart and lung disease. Your chance of disease greatly increases if you continue to smoke. For more information, call the [place] tobacco quit line for smoking cessation 4-794-KZYM-NOW ( )
--- NOTE | 2018-12-29 15:03 | Physician Discharge Referral ---
Home Health/Hosp Referral Info Transfer to: Home Health - Diagnosis (1) Acute metabolic encephalopathy Status: Suspected (2) Acute kidney injury Status: Acute (3) Essential hypertension Status: Chronic (4) Diabetes mellitus Status: Chronic (5) Cholelithiasis Status: Acute - Respiratory Orders Smoking Cessation: Smoking cessation has been advised. For more information, call the [place] Tobacco Quit Line at 5-641-CVPS-NOW. - Transfer Medications Home Medications: Acetaminophen [Tylenol] 500 mg PO Q6HR PRN 12/27/18 [History] Alogliptin Benzoate [Alogliptin] 25 mg PO DAILY 12/27/18 [History] Aspirin [Lo-Dose Aspirin EC] 81 mg PO DAILY 12/27/18 [History] Atorvastatin [Lipitor] 40 mg PO HS 12/27/18 [History] Calcitriol [Rocaltrol] 0.25 mcg PO SUTUTH 12/27/18 [History] Cholecalciferol (Vitamin D3) [Vitamin D] 1,000 unit PO QAM 12/27/18 [History] Ketorolac [Toradol] 10 mg PO Q6HR #20 tablet 12/27/18 [Rx] Labetalol HCl 400 mg PO BID 12/27/18 [History] NIFEdipine XL (24 HR) [Procardia XL] 30 mg PO DAILY 12/27/18 [History] Omeprazole [PriLOSEC] 20 mg PO DAILY 12/27/18 [History] PredniSONE [Deltasone] 40 mg PO DAILY #10 tablet 12/27/18 [Rx] Tamsulosin [Flomax] 0.4 mg PO DAILY 12/27/18 [History] Ammonium Lactate 1 - 2 gm TP QID PRN 12/28/18 [History] Ergocalciferol (VITAMIN D2) [Vitamin D2] 50,000 unit PO QWEEK 12/28/18 [History] GlipiZIDE XL (24 HR) [Glucotrol XL] 10 mg PO DAILY 12/28/18 [History] Allergies/Adverse Reactions: Allergy/AdvReac Type Severity Reaction Status Date / Time No Known Allergies Allergy Verified 12/28/18 16:42 Certification: Further, I certify that my clinical findings support that this patient is homebound (i.e. absences from home require considerable and taxing effort and are for medical reasons or sikhism services or infrequently or short duration when for other reasons) because: Homebound Reason: Patient requires assistance of a person or device to safely leave home Attestation: My signature below is to certify that this patient is under my care and that I, or nurse practitioner, or a physician's email marketing assistant working with me, has a [id number] encounter with this patient.
== END 2018-12-29 17:10 | disposition home health service (06) ==
LOC: 3ANU 12:59 → EMEROOARM 12:59 → SUATTDRO 17:41 → 3ANU 18:38
PROVIDERS: ADMIT Internal Medicine Nephrology; ATTEND Hospitalist